=== PATIENT | male | born 1960 | race Caucasian/White ===

== ENCOUNTER 2021-01-15 07:24 | Day surgery (SDC) | payer OTHER ==
[~2021-01-15] VITALS: Ht 182.9 cm; Wt 102.2 kg
[2021-01-15 07:35] VITALS: BP 178/101
--- NOTE | 2021-01-15 07:35 | NUR ---
PATIENT TO MED SURG ROOM [facility] AMBULATORY[address] VS OBTAINED. DR SOLORZANO NOTIFIED. NEW ORDERS RECIEVED. CONSENT OBTAINED FOR ANR PROCEDURE. ADMISSION ASSESSMENT COMPLETED. IV ESTABLISHED. WILL CONTINUE TO MONITOR
[2021-01-15] MEDS ORDERED: VITAMIN B-12500 MCG PO (08:48)
[2021-01-15] MEDS ORDERED: MICARDIS40 MG PO (08:48)
[2021-01-15] MEDS ORDERED: TAMSULOSIN0.4 MG PO (08:49)
[2021-01-15] MEDS ORDERED: ASPIRIN LOW DOS81 M1 PO (08:50)
[2021-01-15 09:07] LABS: HEMATOCRIT 39.1 % (39.0-50.0); HEMOGLOBIN 12.8 g/dl (14.0-18.0); IMMATURE GRANULOCYTES 0.2 % (0.0-5.0); MEAN CELL VOLUME 85.4 fL CALC (80.0-100.0); MEAN CORPUSCULAR HGB 27.9 pG CALC (26.0-32.0); MEAN CORPUSCULAR HGB CONC 32.7 g/dL CAL (32.0-36.0); NEUT# 2.51 thou/uL (1.82-7.42); RED BLOOD COUNT 4.58 mill/uL (4.70-6.10); RED CELL DISTRI WIDTH 13.7 % (11.5-15.5)
--- NOTE | 2021-01-15 09:09 | NUR ---
DR. SOLORZANO AT BEDSIDE.
[2021-01-15 09:24] VITALS: BP 122/83
--- NOTE | 2021-01-15 09:30 | NUR ---
VITAL SIGNS REASSESSED AT THIS TIME. DR SOLORZANO NOTIFIED NEW ORDERS RECEIVED
--- NOTE | 2021-01-15 09:45 | NUR ---
VITAL SIGNS REASSESSED DR SOLORZANO NOTIFIED NEW ORDERS RECEIVED.
[2021-01-15 09:51] LABS: ALBUMIN 4.1 g/dL (3.2-5.0); ALKALINE PHOSPHATASE 74 u/l (38-126); ANION GAP 9 (6-22 (CALC)); BILIRUBIN, TOTAL 0.6 mg/dL (0.0-1.4); BUN 21 mg/dL (9-20); BUN/CREATININE RATIO 25 (12-20 (CALC)); CARBON DIOXIDE 27 mmol/l (22-30); CHLORIDE 103 mmol/l (95-108); CREATININE 0.8 mg/dL (0.7-1.3); GFR > 60 ML/MIN (>=60 (CALC)); GFR FOR AFR.AMER. > 60 ML/MIN (>=60 (CALC)); POTASSIUM 3.7 mmol/l (3.5-5.1); SGOT/AST 21 u/l (17-59); SODIUM 136 mmol/l (137-146); TOTAL PROTEIN 7.1 g/dL (6.3-8.2)
--- NOTE | 2021-01-15 12:04 | NUR ---
PT TRANSFERED VIA BED FOR ANR PROCEDURE.
--- NOTE | 2021-01-15 19:47 | NUR ---
PT ARRIVES TO UNIT ON BED, ACCOMPANIED BY ANR RN AND DR. HERNÁNDEZ. REPORT RECEIVED AT BEDSIDE.
[2021-01-15 20:00] VITALS: BP 151/78
[2021-01-15 20:15] VITALS: BP 150/84
[2021-01-15 20:40] VITALS: BP 131/77
[2021-01-15 21:20] VITALS: BP 179/82
--- NOTE | 2021-01-16 | NUR ---
PT LAYING IN BED, EYES CLOSED, SNORING. RESPIRATIONS REGULAR AND UNLABORED. NO APPARENT DISTRESS. BED LOCKED IN LOW POSITION WITH BEDRAILS UP X2. BED ALARM ON. CALL [facility] WITHIN REACH.
[2021-01-16 04:00] VITALS: BP 150/95
--- NOTE | 2021-01-16 04:41 | NUR ---
PT INCONTINENT OF URINE. BED BATH GIVEN AND LINENS CHANGE. PT DROWSY AND ROUSABLE. PROJECTILE EMESIS, GREEN BILIOUS, APPROX 350ML. HOB ELEVATED. PT ASSISTED WITH EMESIS BASIN AND ORAL SUCTIONING. PARTIAL LINEN CHANGE COMPLETED.
[2021-01-16 05:03] LABS: ANION GAP 15 (6-22 (CALC)); BUN 16 mg/dL (9-20); BUN/CREATININE RATIO 18 (12-20 (CALC)); CARBON DIOXIDE 22 mmol/l (22-30); CHLORIDE 101 mmol/l (95-108); CREATININE 0.9 mg/dL (0.7-1.3); GFR > 60 ML/MIN (>=60 (CALC)); GFR FOR AFR.AMER. > 60 ML/MIN (>=60 (CALC)); POTASSIUM 4.2 mmol/l (3.5-5.1); SODIUM 135 mmol/l (137-146)
--- NOTE | 2021-01-16 06:06 | NUR ---
RESPONDED TO BED ALARM. PT ATTEMPTING TO GET OUT OF BED. STATES "I HAVE TO PEE SO BAD". PT ASSISTED TO VOID IN URINAL. 200ML CLEAR YELLOW URINE EMPTIED. LINENS NOTED TO HAVE EMESIS STAINS ON THEM. ASSISTED PT TO SIT IN RECLINER. GAIT UNSTEADY AND UNBALANCED. LINENS CHANGED. GOWN CHANGED. PT LOST BALANCE ON THE WAY TO BED FROM RECLINER. ASSISTED PT TO SLIDE DOWN INTO A SITTING POSITION ON FLOOR. PT THEN ASSISTED TO STAND UP FROM FLOOR AND BACK TO BED. BED LOCKED IN LOW POSITION WITH BEDRAILS UP X2. BED ALARM ON. CALL [facility] WITHIN REACH, PT VERBLAIZES AGREEMENT TO CALL PRN.
--- NOTE | 2021-01-16 07:27 | NUR ---
Shift change report given. Patient is sleeping with safety precautions in place.
[2021-01-16 07:48] VITALS: BP 162/95
--- NOTE | 2021-01-16 09:12 | NUR ---
PATIENT IS DROWSY ABLE TO STATE FULL NAME BIRTHDAY AND PLACE. DIFFICULT TO UNDERSTAND AT TIMES. PATIENT COUGHED UP SPUTUM WITH OUT ANY DIFFICULTY X2. WAS ABLE TO TAKE MEDICATION IS NOT COMPLAINING OF ANY PAIN. PATIENT IS CURRENTLY SLEEPING. BLOOD PRESSURE SLIGHTLY ELEVATED AT 161/94 CATAPRES 0.1MG GIVEN SCHEDULED. WILL CONTINUE TO MONITOR.
--- NOTE | 2021-01-16 09:44 | NUR ---
ROUNDED WITH DR SOLORZANO AT BEDSIDE. PATIENT IS SLEEPING. DR ENCOURAGED TO LET HIM REST.
--- NOTE | 2021-01-16 10:40 | NUR ---
PATIENT AGITATED WANTING TO GET UP OUT OF BED UNSAFELY PULLED OUT BOTH PIVs. PATIENT IS UNSTEADY HAVING BALANCE ISSUES. PATIENT ON SIDE OFF BED WITH ASSISTANCE TO BRUSH HIS TEETH. PATIENT FALLING ASLEEP WHILE BRUSH TEETH. BED LINENS CHANGED PATIENT REPOSITIONED. NEW PIV PLACED WITH DIFFICULTY DUE TO PATIENT CONTINUING TO MOVE ARMS WHEN ATTEMPTING TO PLACE IV. NEW PIV IN RIGHT FOREARM.
[2021-01-16 11:32] VITALS: BP 152/84
[2021-01-16] MEDS ORDERED: NALTREXONE50 MG PO (13:05)
[2021-01-16] MEDS ORDERED: CLONIDINE0.1 MG PO (13:07)
[2021-01-16] MEDS ORDERED: KLONOPIN0.5 MG PO (13:09)
--- NOTE | 2021-01-16 15:07 | NUR ---
PATIENT CONTINUES TO BE DROWSY AND SLEEPING.
--- NOTE | 2021-01-16 15:44 | NUR ---
PATIENT CONTINUES TO BE DROWSY. PATIENT ASSISTED WITH SHOWERING. PATIETN BACK IN BED WITH ASSISTANCE.
--- NOTE | 2021-01-16 16:15 | NUR ---
PATIENT DISCHARGE IN STABLE CONDITION IN WHEEL CHAIR. PATIENT WAS ASSISTED TO RESTROOM BEFORE DISCHARGE STILL HAVING DIARRHEA. PIV REMOVED AND PERSONAL BELONGINGS SENT HOME WITH HIM . [employer]
== END 2021-01-16 16:15 | disposition home or self-care (01) | DRG 897 ==
LOC: ANR 07:24 → MS2 07:24 → ANR 08:08
PROVIDERS: ATTEND Anesthesiology
DX: F11.20 Opioid dependence, uncomplicated (principal)
CPT/HCPCS: J2060; J2354; J3475